=== PATIENT | male | born 1950 | race Caucasian/White ===

== ENCOUNTER 2021-09-06 12:42 | Emergency (ER) | payer OTHER ==
[~2021-09-06] VITALS: Ht 180.3 cm; Wt 86.2 kg
[2021-09-06 12:46] VITALS: BP 111/69
[2021-09-06] MEDS ORDERED: ACETAMINOPHEN 325 MG TAB PO ONE (13:30)
[2021-09-06] MEDS ORDERED: ONDANSETRON 4MG INJ IVP ONE (13:30)
[2021-09-06] MEDS ORDERED: LACTATED RINGERS 1000ML 1,000 ML IV ONE (13:30)
[2021-09-06] MEDS ORDERED: ACETAMINOPHEN 325 MG TAB ONE (13:45)
[2021-09-06] MEDS ORDERED: ONDANSETRON 4MG INJ ONE (13:45)
[2021-09-06 13:47] LABS: BASOPHILS % (AUTO) 0.5 % (0.0-5.0); EOSINOPHILS % (AUTO) 4.7 % (0.0-8.0); HEMATOCRIT 37.5 % (42-54); LYMPHOCYTES % (AUTO) 20.6 % (21.0-51.0); MEAN CORPUSCULAR HEMOGLOBIN 32.7 pg (27.0-33.0); MEAN CORPUSCULAR HGB CONC 33.1 g/dL (32.0-36.0); MEAN CORPUSCULAR VOLUME 98.9 fL (79-99); MONOCYTES % (AUTO) 8.9 % (3.0-13.0); NEUTROPHILS % (AUTO) 64.7 % (40.0-77.0); PLATELET COUNT (AUTO) 292 K/uL (130-400); RED BLOOD CELL COUNT(AUTO) 3.79 MIL/uL (4.50-6.20); RED CELL DISTRIBUTION WIDTH 13.2 % (11.0-15.5); WHITE BLOOD COUNT (AUTO) 6.5 K/uL (4.8-10.8)
[2021-09-06 13:57] LABS: CREATININE 1.2 mg/dL (0.5-1.5)
[2021-09-06 14:02] LABS: ALBUMIN 4.5 g/dL (3.5-5.0); BILIRUBIN,TOTAL 0.3 mg/dL (0.2-1.0); TOTAL PROTEIN, SERUM 8.5 g/dL (6.0-8.3)
[2021-09-06] MEDS ORDERED: FAMO20TA8 PO (14:28)
== END 2021-09-06 15:20 | disposition home or self-care (01) ==
LOC: EDH 12:42
DX: A08.4 Viral intestinal infection, unspecified (principal); R55 Syncope and collapse; I10 Essential (primary) hypertension; E11.9 Type 2 diabetes mellitus without complications; I25.10 Atherosclerotic heart disease of native coronary artery without angina pectoris; Z95.0 Presence of cardiac pacemaker
CPT/HCPCS: 36415; 80053; 82150; 83690; 84484; 85025; 96361; 96374; 99283; J2405; J7030